=== PATIENT | female | born 1990 | race American Indian/Alaskan Native ===

== ENCOUNTER 2016-10-02 11:26 | Emergency (ER) | payer MEDICAID ==
[2016-10-02 11:26] VITALS: BMI 45.5
[2016-10-02 11:50] VITALS: BP 141/64; PULSE 94; RESP 18; TEMP 98; O2SAT 97
--- NOTE | 2016-10-02 12:19 | ED PDOC ---
HPI: Female Pain Time Seen by Provider: 10/02/16 11:59 Chief Complaint (Nursing): Female Genitourinary Chief Complaint (Provider): Difficulty urinating History Per: Patient History/Exam Limitations: no limitations Onset/Duration Of Symptoms: Days Current Symptoms Are (Timing): Still Present Quality Of Discomfort: Pressure Associated Symptoms: Urinary Symptoms. denies: Fever, Chills Additional History Per: Patient Additional Complaint(s): The patient is a 25yo female, PMHx of Bipolar Disorder and Depression, presents to the ED for evaluation of discomfort with urination for the past week. Pt reports sensations of pressure upon urination and states she has had similar symptoms in the past. Pt denies any other medical complaints. Abnormal Vaginal Bleeding: No Past Medical History Reviewed: Historical Data, Nursing Documentation, Vital Signs Vital Signs: Last Vital Signs Temp 98 F 10/02/16 11:48 Pulse 94 H 10/02/16 11:48 Resp 18 10/02/16 11:48 BP 141/64 10/02/16 11:48 Pulse Ox 97 10/02/16 11:48 - Medical History PMH: Asthma, Bipolar Disorder, Depression, HIV Denies: Chronic Kidney Disease - Family History Family History: States: Unknown Family Hx - Immunization History Hx Tetanus Toxoid Vaccination: No Hx Influenza Vaccination: Yes Hx Pneumococcal Vaccination: No - Home Medications Home Medications: Ambulatory Orders Medication Instructions Recorded Albuterol HFA [Ventolin HFA 90 1 puff IH Q4 #1 puff 07/03/16 mcg/actuation (8 g)] Azithromycin [Zithromax] 250 mg PO DAILY #4 tab 07/03/16 Benzonatate [Tessalon Perles] 100 mg PO TID #30 sgl 07/03/16 Amoxicillin/Clavulanate [Augmentin 1 tab PO BID #14 tab 07/26/16 875 MG-125 MG] Cetirizine HCl [Zyrtec] 10 mg PO DAILY #20 capsule 07/26/16 Mometasone Furoate [Nasonex] 2 spray NS DAILY #1 bottle 07/26/16 - Allergies Allergies/Adverse Reactions: Allergies Allergy/AdvReac Type Severity Reaction Status Date / Time ibuprofen Allergy RASH Verified 10/02/16 11:48 chocolate Allergy RASH Uncoded 05/11/16 12:00 Review of Systems ROS Statement: Except As Marked, All Systems Reviewed And Found Negative Genitourinary Female: Positive for: Dysuria, Frequency Physical Exam - Reviewed Nursing Documentation Reviewed: Yes Vital Signs Reviewed: Yes - Physical Exam Appears: Positive for: Well, Non-toxic, No Acute Distress Head Exam: Positive for: ATRAUMATIC, NORMAL INSPECTION, NORMOCEPHALIC Skin: Positive for: Normal Color, Warm Eye Exam: Positive for: Normal appearance Neck: Positive for: Normal Respiratory: Negative for: Respiratory Distress Neurologic/Psych: Positive for: Alert, Oriented - ECG O2 Sat by Pulse Oximetry: 97 (RA) Pulse Ox Interpretation: Normal - Progress ED Course And Treament: Pt. eloped from ED prior to having test performed. Medical Decision Making Medical Decision Making: Time: 1205 Impression: UTI Plan: -- Upreg -- UDip -- Urine C&S Scribe Attestation: Documented by Chelita Barron acting as a scribe for ERON Strong Provider Attestation: All medical record entries made by the Scribe were at my direction and personally dictated by me. I have reviewed the chart and agree that the record accurately reflects my personal performance of the history, physical exam, medical decision making, and the department course for this patient. I have also personally directed, reviewed, and agree with the discharge instructions and disposition. Disposition - Clinical Impression Clinical Impression: Female genitourinary symptoms - Disposition Disposition: Left W/O Treatment Disposition Time: 13:40 Condition: UNKNOWN
== END 2016-10-02 12:54 | disposition left against medical advice (07) ==
LOC: H.ER 11:26
DX: N39.9 Disorder of urinary system, unspecified (principal)